=== PATIENT | male | born 1945 | race Caucasian/White ===

== ENCOUNTER 2017-04-01 12:35 | Inpatient (IN) | payer MEDICARE ==
[~2017-04-01] VITALS: Ht 182.9 cm; Wt 77.1 kg
[~2017-04-01 12:35] MED LIST: ALLO300T PO; ATEN100T PO; FENO45CA2 PO; GLIM4TAB2 PO; LISI40TA PO; METF500T27 PO; ONDA4TAB13 SL; OXAP600T2 PO; SIMV10TA3 PO; SITA100T PO; TAMS0.4C2 PO
[2017-04-01] MEDS ORDERED: MELA10TA PO (13:18)
[2017-04-01] MEDS ORDERED: ASPI-515 PO (13:18)
[2017-04-01] MEDS ORDERED: CANA1TAB2 PO (13:18)
[2017-04-01] MEDS ORDERED: HYDR12.53 PO (13:18)
[2017-04-01] MEDS ORDERED: METO-93 PO (13:18)
[2017-04-01] MEDS ORDERED: SODIUM CHLORIDE FLUSH 10ML SYR IVF ONE (13:30)
[2017-04-01] MEDS ORDERED: SODIUM CHLORIDE 0.9% 1,000ML IV ONE (13:30)
[2017-04-01] MEDS ORDERED: ACETAMINOPHEN 325 MG TABLET ONE (13:40)
[2017-04-01] MEDS ORDERED: ACETAMINOPHEN 325 MG TABLET PO ONE (14:00)
[2017-04-01 14:39] LABS: BLOOD UREA NITROGEN 54 mg/dL (7-18)
[2017-04-01] MEDS ORDERED: CEFTRIAXONE 1,000 MG in SODIUM CHLORIDE 0.9% 50 ML IVPB ONE (15:00)
[2017-04-01] MEDS ORDERED: SODIUM CHLORIDE 0.9% 1,000ML IVBOLUS ONE ×2 (15:00→16:30)
[2017-04-01] MEDS: SODIUM CHLORIDE 0.9% 1,000 ML IV SCH ×2 (15:58→23:17)
[2017-04-01] MEDS ORDERED: TRAZODONE 50MG TABLET PO PRN (16:00)
[2017-04-01] MEDS ORDERED: DOCUSATE 100 MG CAPSULE PO PRN (16:00)
[2017-04-01] MEDS ORDERED: ENALAPRILAT 1.25 MG/ML, 2ML IVPush PRN (16:00)
[2017-04-01] MEDS ORDERED: BISACODYL 10 MG SUPP PR PRN (16:00)
[2017-04-01] MEDS ORDERED: morphine SULFATE 10 MG/ML, 1ML IVPush PRN (16:00)
[2017-04-01] MEDS ORDERED: ONDANSETRON 2MG/ML, 2ML IVPush PRN (16:30)
[2017-04-01] MEDS ORDERED: SODIUM CHLORIDE FLUSH 10ML SYR IVF PRN (16:30)
[2017-04-01] MEDS ORDERED: MORPHINE SULFATE 4 MG/ML, 1ML IVPush PRN (16:30)
[2017-04-01] MEDS ORDERED: PLEASE ENTER ALLERGIES MC SCH ×2 (16:30)
[2017-04-01 17:31] VITALS: BP 117/67
[2017-04-01] MEDS ORDERED: FENTANYL PF 100 MCG/2ML ONE (18:24)
[2017-04-01] MEDS ORDERED: MIDAZOLAM 1 MG/ML, 2ML ONE (18:24)
[2017-04-01] MEDS ORDERED: CEFTRIAXONE 1,000 MG ONE (18:48)
[2017-04-01] MEDS ORDERED: PROPOFOL 10 MG/ML, 20ML ONE (19:07)
[2017-04-01] MEDS ORDERED: OMNIPAQUE 350 MG/ML, 50 ML BOTTLE ONE (20:03)
[2017-04-01] MEDS ORDERED: MEPERIDINE/PF 25MG/0.5ML ONE (20:24)
[2017-04-01 21:00] VITALS: BP 148/62
[2017-04-01] MEDS ORDERED: MEPERIDINE/PF 25MG/0.5ML IVPush PRN (21:00)
[2017-04-01 23:35] VITALS: BP 131/73
[2017-04-01] MEDS: HYDROcodone/APAP 5/325 TABLET PO PRN (23:49)
[2017-04-01] MEDS: ONDANSETRON 2MG/ML, 2ML IVPush PRN (23:49)
[2017-04-02] MEDS ORDERED: ENALAPRILAT 1.25 MG/ML, 2ML IVPush PRN (00:31)
[2017-04-02] MEDS ORDERED: DEXTROSE 50%, 50ML SYRINGE IVPush PRN (01:30)
[2017-04-02] MEDS ORDERED: DEXTROSE 4 GM TAB.CHEW PO PRN (01:30)
[2017-04-02] MEDS ORDERED: GLUCAGON 1 MG IM PRN (01:30)
[2017-04-02 03:35] VITALS: BP 106/62
[2017-04-02 05:43] LABS: BLOOD UREA NITROGEN 42 mg/dL (7-18)
[2017-04-02] MEDS: LINEZOLID PMX 600MG/300ML 300 ML IV SCH ×2 (05:50→17:58)
[2017-04-02 07:00] VITALS: BP 97/55
[2017-04-02] MEDS: INSULIN REGULAR 100 UNITS/ML, 3ML VIAL SQ-INSULIN SCH ×2 (07:00→11:00)
[2017-04-02] MEDS: INSULIN ASPART 100 UNITS/ML, PEN SQ-INSULIN SCH ×2 (07:00→11:00)
[2017-04-02] MEDS: SODIUM CHLORIDE 0.9% 1,000 ML IV SCH ×2 (09:40→15:58)
[2017-04-02] MEDS: SODIUM CHLORIDE FLUSH 10ML SYR IVF SCH ×2 (09:41→21:00)
[2017-04-02 11:00] VITALS: BP 121/71
[2017-04-02] MEDS ORDERED: PLEASE ENTER ALLERGIES MC SCH ×2 (13:00)
[2017-04-02] MEDS: HYDROcodone/APAP 5/325 TABLET PO PRN (13:31)
[2017-04-02] MEDS: TAMSULOSIN 0.4 MG CAP.ER.24H PO SCH (13:46)
[2017-04-02 13:52] VITALS: BP 136/81
[2017-04-02] MEDS ORDERED: CEFTRIAXONE 2 GM in SODIUM CHLORIDE 0.9% 50 ML IV SCH (15:30)
[2017-04-02] MEDS ORDERED: POTASSIUM CHLORIDE 10% 40 MEQ/30 ML UDC PO ONE (16:00)
[2017-04-02] MEDS: CEFTRIAXONE PMX 2GM/50ML 50 ML IVPB SCH (16:11)
[2017-04-02] MEDS ORDERED: INVOKAMET PO SCH (16:30)
[2017-04-02] MEDS: HEPARIN 5,000 UNITS/ML, 1ML SQ SCH (17:30)
[2017-04-02] MEDS ORDERED: POTASSIUM CHLORIDE 20 MEQ TAB.ER.PRT PO ONE (18:00)
[2017-04-02] MEDS: SIMVASTATIN 10 MG TABLET PO SCH (22:30)
[2017-04-03 02:27] VITALS: BP 138/74
[2017-04-03 05:52] LABS: BLOOD UREA NITROGEN 32 mg/dL (7-18)
[2017-04-03] MEDS ORDERED: METOPROLOL SUCCINATE 50 MG TAB.ER.24H PO SCH (06:00)
[2017-04-03] MEDS: HEPARIN 5,000 UNITS/ML, 1ML SQ SCH ×2 (06:41→17:19)
[2017-04-03] MEDS: LINEZOLID PMX 600MG/300ML 300 ML IV SCH ×2 (06:41→17:18)
[2017-04-03] MEDS: INVOKAMET PO SCH ×2 (07:30→16:30)
[2017-04-03] MEDS: SODIUM CHLORIDE FLUSH 10ML SYR IVF SCH ×2 (08:56→21:00)
[2017-04-03 09:00] VITALS: BP 160/86
[2017-04-03] MEDS ORDERED: SITAGLIPTIN 100MG TABLET PO SCH (09:00)
[2017-04-03] MEDS ORDERED: HYDROCHLOROTHIAZIDE 12.5 MG CAPSULE PO SCH (09:00)
[2017-04-03] MEDS ORDERED: SITAGLIPTIN 50MG TABLET PO SCH (09:00)
[2017-04-03] MEDS: TAMSULOSIN 0.4 MG CAP.ER.24H PO SCH (10:11)
[2017-04-03] MEDS: HYDROcodone/APAP 5/325 TABLET PO PRN ×2 (10:21→17:23)
[2017-04-03 14:58] VITALS: BP 143/76
[2017-04-03] MEDS: CEFTRIAXONE PMX 2GM/50ML 50 ML IVPB SCH (15:56)
[2017-04-03 18:55] VITALS: BP 132/71
[2017-04-03] MEDS: SIMVASTATIN 10 MG TABLET PO SCH (19:07)
[2017-04-03] MEDS: ONDANSETRON 2MG/ML, 2ML IVPush PRN (21:38)
[2017-04-03] MEDS ORDERED: PIOG30TA8 PO (21:47)
[2017-04-03] MEDS ORDERED: INVOKAMET HOMEMEDPO SCH (22:00)
[2017-04-04 01:47] VITALS: BP 155/78
[2017-04-04] MEDS: LINEZOLID PMX 600MG/300ML 300 ML IV SCH (04:16)
[2017-04-04] MEDS: HEPARIN 5,000 UNITS/ML, 1ML SQ SCH ×2 (04:17→16:58)
[2017-04-04 05:34] LABS: BLOOD UREA NITROGEN 23 mg/dL (7-18)
[2017-04-04] MEDS ORDERED: METOPROLOL SUCCINATE 50 MG TAB.ER.24H HOMEMEDPO SCH (06:00)
[2017-04-04] MEDS: ONDANSETRON 2MG/ML, 2ML IVPush PRN (06:47)
[2017-04-04] MEDS: HYDROcodone/APAP 5/325 TABLET PO PRN ×2 (06:47→13:00)
[2017-04-04 07:17] VITALS: BP 136/71
[2017-04-04] MEDS: SODIUM CHLORIDE FLUSH 10ML SYR IVF SCH ×2 (08:56→21:01)
[2017-04-04] MEDS ORDERED: JANUVIA 100 MG HOMEMEDPO SCH (09:00)
[2017-04-04] MEDS: CANAGLIFLOZIN HOMEMEDPO SCH ×2 (11:30→16:30)
[2017-04-04] MEDS: METFORMIN HOMEMEDPO SCH ×2 (11:30→16:30)
[2017-04-04 11:53] VITALS: BP 154/77
[2017-04-04] MEDS: METOPROLOL SUCCINATE 50 MG TAB.ER.24H HOMEMEDPO SCH (11:55)
[2017-04-04 13:57] VITALS: BP 116/65
[2017-04-04] MEDS ORDERED: POTASSIUM CHLORIDE 10% 40 MEQ/30 ML UDC PO ONE (14:30)
[2017-04-04] MEDS ORDERED: DIPHENHYDRAMINE 50 MG CAPSULE PO PRN (15:00)
[2017-04-04] MEDS ORDERED: TAMSULOSIN 0.4 MG CAP.ER.24H HOMEMEDPO SCH (16:30)
[2017-04-04] MEDS: DAPTOMYCIN 470 MG in SODIUM CHLORIDE 0.9% 100 ML IVPB SCH (16:57)
[2017-04-04 18:22] VITALS: BP 139/76
[2017-04-04] MEDS: TAMSULOSIN 0.4 MG CAP.ER.24H HOMEMEDPO SCH (20:57)
[2017-04-04] MEDS ORDERED: SIMVASTATIN 10 MG TABLET PO SCH (21:00)
[2017-04-04] MEDS ORDERED: SIMVASTATIN 10 MG TABLET HOMEMEDPO SCH (21:00)
[2017-04-05 01:40] VITALS: BP 148/81
[2017-04-05 05:53] LABS: BLOOD UREA NITROGEN 19 mg/dL (7-18)
[2017-04-05] MEDS: HEPARIN 5,000 UNITS/ML, 1ML SQ SCH ×2 (06:15→17:09)
[2017-04-05 06:50] VITALS: BP 139/82
[2017-04-05] MEDS ORDERED: POTASSIUM CHLORIDE 20 MEQ TAB.ER.PRT PO ONE (07:00)
[2017-04-05] MEDS: LISINOPRIL 20 MG TABLET PO SCH (08:21)
[2017-04-05] MEDS: SODIUM CHLORIDE FLUSH 10ML SYR IVF SCH ×2 (08:21→20:39)
[2017-04-05] MEDS: FENOFIBRATE 54 MG TABLET PO SCH (08:22)
[2017-04-05] MEDS: ASPIRIN 81 MG TABLET EC PO SCH (08:37)
[2017-04-05] MEDS: METFORMIN HOMEMEDPO SCH ×2 (11:09→16:28)
[2017-04-05] MEDS: JANUVIA 100MG HOMEMEDPO SCH (11:09)
[2017-04-05] MEDS: CANAGLIFLOZIN HOMEMEDPO SCH ×2 (11:09→16:28)
[2017-04-05] MEDS: METOPROLOL SUCCINATE 50 MG TAB.ER.24H HOMEMEDPO SCH (11:10)
[2017-04-05 11:17] VITALS: BP 138/78
[2017-04-05] MEDS ORDERED: SIMVASTATIN 10 MG TABLET HOMEMEDPO SCH (11:30)
[2017-04-05 13:33] VITALS: BP 121/76
[2017-04-05] MEDS: DAPTOMYCIN 470 MG in SODIUM CHLORIDE 0.9% 100 ML IVPB SCH (15:49)
[2017-04-05] MEDS ORDERED: ENALAPRILAT 1.25 MG/ML, 2ML IVPush PRN (16:00)
[2017-04-05] MEDS ORDERED: GLUCAGON 1 MG IM PRN (16:00)
[2017-04-05] MEDS: TAMSULOSIN 0.4 MG CAP.ER.24H HOMEMEDPO SCH (16:28)
[2017-04-05 19:22] VITALS: BP 131/68
[2017-04-05] MEDS ORDERED: TRAZODONE 50MG TABLET PO PRN (20:00)
[2017-04-05] MEDS: LINEZOLID 600 MG TABLET PO SCH (20:39)
[2017-04-05] MEDS ORDERED: TRIAMCINOLONE OINT 0.1%, 15GM TP SCH (21:00)
[2017-04-05] MEDS ORDERED: TRIAMCINOLONE CRM 0.1%, 15GM TP SCH (21:00)
[2017-04-06 01:05] VITALS: BP 139/69
[2017-04-06 05:14] LABS: BLOOD UREA NITROGEN 24 mg/dL (7-18)
[2017-04-06 05:21] LABS: ASPARTATE AMINO TRANSFERASE 39 U/L (15-37)
[2017-04-06] MEDS: HEPARIN 5,000 UNITS/ML, 1ML SQ SCH (06:20)
[2017-04-06] MEDS: LINEZOLID 600 MG TABLET PO SCH (07:30)
[2017-04-06] MEDS: LISINOPRIL 20 MG TABLET PO SCH (08:15)
[2017-04-06] MEDS: FENOFIBRATE 54 MG TABLET PO SCH (08:15)
[2017-04-06] MEDS: SODIUM CHLORIDE FLUSH 10ML SYR IVF SCH (08:15)
[2017-04-06] MEDS: ASPIRIN 81 MG TABLET EC PO SCH (08:15)
[2017-04-06] MEDS: CANAGLIFLOZIN HOMEMEDPO SCH ×2 (12:30→16:30)
[2017-04-06] MEDS: METFORMIN HOMEMEDPO SCH ×2 (12:30→16:30)
[2017-04-06] MEDS: METOPROLOL SUCCINATE 50 MG TAB.ER.24H HOMEMEDPO SCH (12:30)
[2017-04-06] MEDS: JANUVIA 100MG HOMEMEDPO SCH (12:30)
[2017-04-07 14:02] VITALS: BP 119/76
== END 2017-04-06 20:00 | disposition home or self-care (01) | DRG 853 ==
LOC: ED 13:15 → EDIP 15:58 → 4NOR 17:17 → DCLOUNGE 04-06 19:30
PROVIDERS: ADMIT Internal Medicine; ATTEND Internal Medicine
PROC: 0T748DZ Dilation of Left Kidney Pelvis with Intraluminal Device, Via Natural or Artificial Opening Endoscopic (ICD-10-PCS; 2017-04-01)
PROC: BT1F1ZZ Fluoroscopy of Left Kidney, Ureter and Bladder using Low Osmolar Contrast (ICD-10-PCS; 2017-04-01)
PROC: 0T778DZ Dilation of Left Ureter with Intraluminal Device, Via Natural or Artificial Opening Endoscopic (ICD-10-PCS; principal; 2017-04-01 18:00)
DX: A41.9 Sepsis, unspecified organism (principal); N17.0 Acute kidney failure with tubular necrosis; N13.8 Other obstructive and reflux uropathy; N13.2 Hydronephrosis with renal and ureteral calculous obstruction; D72.819 Decreased white blood cell count, unspecified; I10 Essential (primary) hypertension; E11.9 Type 2 diabetes mellitus without complications; E78.00 Pure hypercholesterolemia, unspecified; R65.20 Severe sepsis without septic shock; I25.10 Atherosclerotic heart disease of native coronary artery without angina pectoris; E78.5 Hyperlipidemia, unspecified; B95.7 Other staphylococcus as the cause of diseases classified elsewhere; I49.3 Ventricular premature depolarization; B95.61 Methicillin susceptible Staphylococcus aureus infection as the cause of diseases classified elsewhere; Z87.442 Personal history of urinary calculi
CPT/HCPCS: 36415; 74176; 74420; 80048; 80053; 81001; 82040; 82962; 83605; 83735; 84100; 84145; 85025; 85651; 86140; 87040; 87077; 87086; 87150; 87186; 93005; 93306; 96361; 96365; J0696; J0878; J1644; J2020; J2175; J2250; J2405; J2704; J3010; Q9967; C1758; C1769; C2617; J2270; J7030

== ENCOUNTER → 2019-04-14 | Outpatient (CLI) | payer MEDICARE ==
[~2019-04-14] MED LIST changes: +ASPI-515 PO; +CANA1TAB2 PO; +HYDR12.517 PO; +MELA10TA PO; +METO-93 PO; +PIOG30TA23 PO; +REGADENOSON 0.4 MG/5 ML SYRINGE ONE
== END | disposition home or self-care (01) ==
LOC: CFH 08:04
PROVIDERS: ATTEND Internal Medicine Cardiovascular Disease
DX: I25.2 Old myocardial infarction (principal)
CPT/HCPCS: 78452; 93017; A9502; J2785

== ENCOUNTER → 2021-02-06 | Outpatient (CLI) | payer MEDICARE ==
[~2021-02-06] MED LIST changes: -ASPI-515 PO; +ASPI-963 PO; -GLIM4TAB2 PO; +GLIM4TAB8 PO; -LISI40TA PO; +LISI40TA9 PO; +SIMV10TA18 PO; -SIMV10TA3 PO
== END | disposition home or self-care (01) ==
LOC: CFH 12:27
PROVIDERS: ATTEND Internal Medicine Cardiovascular Disease
DX: Z01.810 Encounter for preprocedural cardiovascular examination (principal)
CPT/HCPCS: 78452; 93017; A9502; J2785